=== PATIENT | female | born 1945 | race Hispanic/Latino ===

== ENCOUNTER 2018-05-08 12:13 | Outpatient (CLI) | payer MEDICARE ==
--- NOTE | 2018-05-08 13:01 | XRay Report ---
CERVICAL SPINE SERIES THREE VIEWS: 05/08/18 12:13:00 CLINICAL: Neck pain and stiffness. FINDINGS: Normal vertebral body height and alignment. Mild disc space narrowing at C6-7. The rest of the disc spaces are normal. Small anterior osteophytes from C4-5 through C6-7 and most prominent at C6-7. No fracture. Multilevel facet joint sclerosis. The odontoid and C1 are normal. Normal soft tissues and airway. IMPRESSION: Moderate multilevel degenerative disc disease, worse at C6-7 and multilevel facet joint arthropathy.
== END 2018-05-08 12:14 | disposition home or self-care (01) ==
LOC: SPVIMAG 12:13
PROVIDERS: ATTEND Internal Medicine
DX: M50.323 Other cervical disc degeneration at C6-C7 level (principal); M48.02 Spinal stenosis, cervical region
CPT/HCPCS: 72040

== ENCOUNTER 2019-01-17 14:43 | Outpatient (CLI) | payer MEDICARE ==
--- NOTE | 2019-01-18 11:03 | Mammography Report ---
DIGITAL SCREENING MAMMOGRAM WITH CAD, 01/17/2019 INDICATION: Routine screening mammography. TECHNIQUE: Digital bilateral 2D mammography was obtained in the craniocaudal and mediolateral obliq ue projections. This examination was interpreted with the benefit of Computer-Aided Detection analysi s. COMPARISON: 01/03/2018 FINDINGS: Breast Density: The breasts are heterogeneously dense, which may obscure small masses. There is no evidence of dominant mass, suspicious calcifications or architectural distortion in eithe r breast. IMPRESSION: No mammographic evidence of malignancy. Follow up recommendation: Routine yearly BI-RADS Category 1: Negative. A "normal" or negative report should not discourage follow up or biopsy of a clinically significant f inding. A written summary of these findings will be mailed to the patient. The patient will be entered into a mammography reporting system which will generate a reminder letter for the patient's next appointmen t at the appropriate interval. The [employer] recommends yearly mammograms starting at age 40 and continuing as l sonia as a woman is in good health. Breast MRI is recommended for women with an approximate 20-25% or greater lifetime risk of breast cancer, including women with a strong family history of breast or ova maría cancer or who have been treated for Hodgkin's disease. Signer Name: Tommie Souza MD Signed: 01/18/2019 10:59 AM Workstation Name: [id number]
== END 2019-01-17 14:44 | disposition home or self-care (01) ==
LOC: SPVWC 14:43
PROVIDERS: ATTEND Internal Medicine
DX: Z12.31 Encounter for screening mammogram for malignant neoplasm of breast (principal)
CPT/HCPCS: 77067